=== PATIENT | male | born 1955 | race Caucasian/White ===

== ENCOUNTER 2023-03-18 09:07 | Outpatient (CLI) | payer MEDICARE, BC ==
[2023-03-18] MEDS ORDERED: iohexol 300mg/ml 100ml inj. ONE (09:21)
== END 2023-03-18 23:59 | disposition home or self-care (01) ==
LOC: RAD 09:07
PROVIDERS: ATTEND Nurse Practitioner Family
DX: C61 Malignant neoplasm of prostate (principal); R91.1 Solitary pulmonary nodule; K44.9 Diaphragmatic hernia without obstruction or gangrene
CPT/HCPCS: 71270; J3490; Q9967